=== PATIENT | female | born 1955 | race Two or more races ===

== ENCOUNTER 2018-12-19 07:00 | Day surgery (SDC) | payer OTHER | END 2018-12-19 13:00 | disposition home or self-care (01) | LOC: AMB-ENDOS 07:00 | DX: K57.32 Diverticulitis of large intestine without perforation or abscess without bleeding (principal); K52.89 Other specified noninfective gastroenteritis and colitis; K64.1 Second degree hemorrhoids ==

== ENCOUNTER 2019-02-12 07:13 | Outpatient (CLI) | payer OTHER | END 2019-02-20 10:34 | disposition home or self-care (01) | LOC: TOM 07:13 | DX: K57.32 Diverticulitis of large intestine without perforation or abscess without bleeding (principal); K63.5 Polyp of colon ==